=== PATIENT | female | born 1950 | race Caucasian/White ===

== ENCOUNTER 2017-01-05 09:39 | Emergency (ER) | payer MEDICARE ==
[2017-01-05] MEDS ORDERED: Acetaminophen TAB* 325 MG PO ONE (10:45)
--- NOTE | 2017-01-05 11:16 | RAD ---
HISTORY: Head injury COMPARISONS: None TECHNIQUE: Multiple contiguous axial CT scans were obtained of the head without intravenous contrast. FINDINGS: HEMORRHAGE/INFARCT: There is no hemorrhage or acute infarct. MASSES/SHIFT: There is no mass or shift. EXTRA-AXIAL SPACES: There are no extra-axial fluid collections. SULCI AND VENTRICLES: The sulci and ventricles are normal in size and position for the patient's stated age. CEREBRUM: There are no focal parenchymal abnormalities. BRAINSTEM: There are no focal parenchymal abnormalities. CEREBELLUM: There are no focal parenchymal abnormalities. VESSELS: The vessels are grossly normal. PARANASAL SINUSES: The paranasal sinuses are clear. ORBITS: The orbits are unremarkable. BONES AND SOFT TISSUE: No bone or soft tissue abnormalities are noted. OTHER: None IMPRESSION: NO ACUTE INTRACRANIAL PATHOLOGY.
--- NOTE | 2017-01-05 11:44 | RAD ---
INDICATION: Back and sternum pain after a fall down stairs COMPARISON: Most recent comparison chest x-ray is dated July 14, 2016 TECHNIQUE: 5 views of the bilateral ribs and AP chest were obtained. FINDINGS: No fracture or significant focal osseous abnormality is seen. No pneumothorax is apparent. Limited views demonstrate grossly clear lungs. Similar to the prior chest x-ray there is a 2.1 cm density overlying the right hilum consistent with a calcified granuloma. IMPRESSION: No radiographically apparent displaced rib fracture or pneumothorax. If the patient's symptoms persist, follow-up imaging is recommended.
[2017-01-05 11:50] VITALS: BP 157/68
--- NOTE | 2017-01-05 12:34 | UC ---
Head Injury HPI - HPI Summary HPI Summary: TRIPPED ON A SHOE AND FELL DOWN 12 STAIRS THIS MORNING 6AM. STRUCK TOP OF HEAD AND CHEST. NO LOC. WIND WAS KNOCKED OUT OF HER AND PT HAS SOME PLEURITIC PAIN AND BOWENS NOW. ALSO HAS STERNAL PAIN RADIATING TO BACK. NO NAUISEA OR VISUAL DISTURBANCE. HAS SOME ABRASIONS. LAST TETANUS ABOUT A YEAR AGO. - History Of Current Complaint Chief Complaint: UCHeadInjury Stated Complaint: HEAD INJURY Time Seen by Provider: 01/05/17 10:22 Hx Obtained From: Patient, Family/Land Reclamation Specialist - DAUGHTER Onset/Duration: Sudden Onset, Lasting Hours, Still Present Severity Currently: Moderate Severity Initially: Moderate Pain Intensity: 8 Pain Scale Used: 0-10 Numeric Character: Dull Aggravating Factor(s): Nothing Alleviating Factor(s): Nothing Associated Signs And Symptoms: Negative: LOC (Time In Secs./Mins/Hrs), LOC Duration Unknown, Confusion, Memory Loss, Neck Pain, Nausea, Vomiting - Allergies/Home Medications Allergies/Adverse Reactions: Allergies Allergy/AdvReac Type Severity Reaction Status Date / Time No Known Allergies Allergy Verified 06/18/14 13:21 Home Medications: Home Medications Glycopyrrolate-Formoterol Fuma [[employer] Aerosphere 9-4.8 Mcg/Act] 1 aer IN 01/05 [History] PMH/Surg Hx/FS Hx/Imm Hx Endocrine History: Diabetes, Dyslipidemia Cardiovascular History: Hypertension Respiratory History: COPD - Surgical History Surgical History: Yes Surgery Procedure, Year, and Place: [id number]. lung surgury =1993 for calcifcation - Family History Known Family History: Positive: Hypertension, Diabetes - Social History Alcohol Use: Rare Substance Use Type: None Smoking Status (MU): Heavy Every Day Tobacco Smoker Type: Cigarettes Review of Systems Constitutional: Negative Skin: Bruising, Other - ABRASIONS Respiratory: Negative Cardiovascular: Chest Pain Gastrointestinal: Negative Musculoskeletal: Myalgia Neurological: Headache All Other Systems Reviewed And Are Negative: Yes Physical Exam Triage Information Reviewed: Yes Appearance: Well-Appearing, No Pain Distress, Well-Nourished Vital Signs: Initial Vital Signs Temp 97.9 F 01/05/17 09:53 Pulse 72 01/05/17 09:53 Resp 18 01/05/17 09:53 BP 142/51 01/05/17 09:53 Pulse Ox 99 01/05/17 09:53 Vital Signs Reviewed: Yes Eyes: Positive: Conjunctiva Clear ENT: Positive: Hearing grossly normal, Pharynx normal, TMs normal Neck: Positive: Supple, Nontender, No Lymphadenopathy Respiratory Exam: Normal Cardiovascular Exam: Normal Abdomen Description: Positive: Soft Musculoskeletal: Positive: Edema @ - TRACE NON PITTING EDEMA BILATERAL ANKLES Neurological: Positive: Alert Psychological: Positive: Normal Response To Family, Age Appropriate Behavior Skin: Positive: Other - ABRASIONS RIGHT HAND, LEFT ELBOW Diagnostics - EKG Cardiac Rate: NL Cardiac Rhythm: Sinus: Normal - 69BPM Ectopy: None ST Segment: Normal Head Injury Course/Dx - Differential Dx/Diagnosis Provider Diagnoses: 1. HEAD INJURY. 2. MUSCULOSKELETAL PAIN DUE TO FALL Discharge - Discharge Plan Condition: Stable Disposition: HOME Patient Education Materials: Head Injury (ED), Musculoskeletal Pain (ED) Referrals: Stephen Bean MD [Medical Doctor] - If Needed Additional Instructions: CT SCAN OF THE HEAD UNREMARKABLE. RIB AND CHEST XRAYS UNREMARKABLE. TAKE TYLENOL FOR PAIN. BE SURE TO TAKE DEEP BREATHS TO MAINTAIN YOUR LUNG CAPACITY. GO TO THE ER WITHOUT FAIL IF YOUR SYMPTOMS WORSEN.
== END 2017-01-05 12:41 | disposition home or self-care (01) ==
LOC: UCEAST 09:39
DX: S09.90XA Unspecified injury of head, initial encounter (principal); M79.1 Myalgia; W10.8XXA Fall (on) (from) other stairs and steps, initial encounter; Y93.01 Activity, walking, marching and hiking; Y92.008 Other place in unspecified non-institutional (private) residence as the place of occurrence of the external cause; E11.9 Type 2 diabetes mellitus without complications; Z72.0 Tobacco use
CPT/HCPCS: 70450; 71111; 93005; 99212; A9270-GY; G0463